=== PATIENT | male | born 1975 | race Caucasian/White ===

== ENCOUNTER → 2018-01-07 | Outpatient (CLI) | payer OTHER | LOC: M EKG 09:09 | DX: R53.83 Other fatigue (principal) ==

== ENCOUNTER → 2018-06-10 | Outpatient (REF) ==
[~2018-06-10] MED LIST: ACET65TA OR; ARAVA OR; CALCTAB22 OR; DICLOFENAC SODIUM PO; FOLI1TAB OR; IBUP400T OR; LEFLUNOMIDE PO; MULTIVIT OR; PHEN 25 OR; PRED5TAB PO; REMICADE IV
== END ==
LOC: M LAB LCGH 15:50
PROVIDERS: ATTEND Physician Assistant
DX: B35.1 Tinea unguium (principal)

== ENCOUNTER → 2021-04-19 | Outpatient (CLI) | payer OTHER | LOC: M RAD 14:33 | PROVIDERS: ATTEND Family Medicine | DX: N13.2 Hydronephrosis with renal and ureteral calculous obstruction (principal); R30.0 Dysuria ==

== ENCOUNTER → 2022-10-12 | Outpatient (CLI) | payer OTHER | LOC: M WHC 09:26 | PROVIDERS: ATTEND Student in an Organized Health Care Education/Training Program | DX: Z13.820 Encounter for screening for osteoporosis (principal); M81.8 Other osteoporosis without current pathological fracture ==